=== PATIENT | male | born 1960 | race Caucasian/White ===

== ENCOUNTER 2017-05-26 01:15 | Inpatient (IN) | payer MEDICARE, OTHER ==
[2017-05-26] MEDS: morphine 4 MG/ML VIAL IV ×2 (03:05→05:10)
[2017-05-26] MEDS: ONDANSETRON 4 MG INJ IV ×2 (03:05→05:16)
[2017-05-26 03:06] LABS: ADD MAN DIFF? NO
[2017-05-26 03:07] LABS: WHITE BLOOD COUNT 5.3 10^3/ul (4.8-10.8)
[2017-05-26 03:07] LABS: BASOPHILS % 0.6 % (0.0-2.0); HEMATOCRIT 37.8 % (42.0-52.0); HEMOGLOBIN 12.5 g/dl (14.0-18.0); LYMPHOCYTES # 0.8 10^3/ul (0.8-2.9); LYMPHOCYTES % 14.9 % (15.0-51.0); MEAN CORPUSCULAR HEMOGLOBIN 31.3 pg (29.0-33.0); MEAN CORPUSCULAR HGB CONC 33.1 g/dl (32.0-37.0); MEAN CORPUSCULAR VOLUME 94.7 fl (82.0-101.0); MEAN PLATELET VOLUME 9.5 fl (7.4-10.4); MONOCYTE # 0.5 10^3/ul (0.3-0.9); NEUTROPHIL # 3.9 10^3/ul (1.6-7.5); NEUTROPHILS % 74.3 % (39.0-77.0); PLATELET COUNT 104 10^3/UL (140-415); POSITIVE DIFF @See below; RED BLOOD COUNT 3.99 10^6/ul (4.70-6.10); RED CELL DISTRIBUTION WIDTH 17.1 % (11.5-14.5)
[2017-05-26 03:28] LABS: ALANINE AMINOTRANSFERASE 28 IU/L (13-69); ALBUMIN 4.4 g/dl (3.3-4.9); ALBUMIN/GLOBULIN RATIO 1.37; ALKALINE PHOSPHATASE 171 IU/L (42-121); ANION GAP 18 (8-16); ASPARTATE AMINO TRANSFERASE 46 IU/L (15-46); BILIRUBIN,INDIRECT 0.6 mg/dl (0-1.1); BILIRUBIN,TOTAL 0.6 mg/dl (0.2-1.3); BLOOD UREA NITROGEN 20 mg/dl (7-20); CALCIUM 9.4 mg/dl (8.4-10.2); CARBON DIOXIDE 27 mmol/L (21-31); CHLORIDE 105 mmol/L (97-110); CREATINE KINASE 361 IU/L (23-200); CREATININE 1.11 mg/dl (0.61-1.24); GLUCOSE 72 mg/dl (70-220); POTASSIUM 3.9 mmol/L (3.5-5.1); SODIUM 146 mmol/L (135-144); TOTAL PROTEIN 7.6 g/dl (6.1-8.1)
[2017-05-26] MEDS ORDERED: ACETAMINOPHEN 325 MG TAB PO (03:30)
[2017-05-26] MEDS ORDERED: NACL 0.9% 3 ML SYG IV (03:30)
[2017-05-26] MEDS ORDERED: ONDANSETRON 4 MG INJ IV (03:30)
[2017-05-26 03:39] LABS: B-TYPE NATRIURETIC PEPTIDE 1160 PG/ML (0-125); CK INDEX 1.6; TROPONIN-I 0.016 ng/ml (0.00-0.12); TROPONIN-I 0.017 ng/ml (0.00-0.12)
[2017-05-26] MEDS: NITROGLYCERIN (SL) 0.4 MG TAB SL ×2 (03:39→04:17)
[2017-05-26] MEDS: SOD CHLORIDE 0.9% 1,000 ML IV (03:39)
[2017-05-26 03:46] LABS: CK-MB 5.79 ng/ml (0.0-2.4)
[2017-05-26 03:52] LABS: CHOL/HDL RATIO 2.4 RATIO; CHOLESTEROL 146 mg/dl (100-200); HDL CHOLESTEROL 59 mg/dl (28-71); LDL CHOLESTEROL,CALCULATED 75 mg/dl; TRIGLYCERIDES 59 mg/dl (0-149)
[2017-05-26 03:52] LABS: MAGNESIUM 1.5 mg/dl (1.7-2.5)
[2017-05-26 04:02] LABS: HEMOGLOBIN A1C 4.8 % (0-5.9)
[2017-05-26] MEDS: morphine 2 MG INJ IV ×4 (05:17→22:53)
[2017-05-26] MEDS: MAGNESIUM SULFATE 3 GM in DEXTROSE 5% 100 ML IVPB (12:49)
[2017-05-26 13:14] LABS: FREE T4 (FREE THYROXINE) 1.24 ng/dl (0.64-1.79)
[2017-05-26 15:48] LABS: CREATINE KINASE 213 IU/L (23-200)
[2017-05-26 15:57] LABS: CK INDEX 1.8
[2017-05-26 15:58] LABS: CK-MB 3.89 ng/ml (0.0-2.4)
[2017-05-26 16:19] LABS: TROPONIN-I 0.017 ng/ml (0.00-0.12)
[2017-05-26] MEDS: FUROSEMIDE 40 MG INJ IV (18:21)
[2017-05-27] MEDS: HYDROmorphONE 2 MG TAB PO (01:45)
[2017-05-27] MEDS ORDERED: HYDROmorphONE 2 MG/ML SYG IV (02:51)
[2017-05-27] MEDS: HYDROmorphONE 0.5 MG/0.5 ML SYG IV ×5 (02:54→23:15)
[2017-05-27] MEDS: FUROSEMIDE 40 MG INJ IV ×2 (05:43→18:23)
[2017-05-27 08:16] LABS: ADD MAN DIFF? NO
[2017-05-27] MEDS: ASPIRIN 81 MG TAB PO (08:46)
[2017-05-27] MEDS: ENOXAPARIN 40 MG/0.4 ML SYG SC (08:47)
[2017-05-27 08:51] LABS: ANION GAP 10 (8-16); BLOOD UREA NITROGEN 20 mg/dl (7-20); CALCIUM 8.7 mg/dl (8.4-10.2); CARBON DIOXIDE 33 mmol/L (21-31); CHLORIDE 105 mmol/L (97-110); CREATININE 0.89 mg/dl (0.61-1.24); GLUCOSE 99 mg/dl (70-220); MAGNESIUM 1.9 mg/dl (1.7-2.5); SODIUM 144 mmol/L (135-144)
[2017-05-27 09:36] LABS: WHITE BLOOD COUNT 2.8 10^3/ul (4.8-10.8)
[2017-05-27 09:36] LABS: ABNORMAL IP MESSAGE 1; BASOPHILS % 0.4 % (0.0-2.0); HEMATOCRIT 36.7 % (42.0-52.0); HEMOGLOBIN 12.1 g/dl (14.0-18.0); LYMPHOCYTES # 0.6 10^3/ul (0.8-2.9); LYMPHOCYTES % 20.6 % (15.0-51.0); MEAN CORPUSCULAR HEMOGLOBIN 32.1 pg (29.0-33.0); MEAN CORPUSCULAR VOLUME 97.3 fl (82.0-101.0); MEAN PLATELET VOLUME 9.5 fl (7.4-10.4); MONOCYTE # 0.4 10^3/ul (0.3-0.9); MONOCYTES % 12.8 % (0.0-11.0); NEUTROPHIL # 1.9 10^3/ul (1.6-7.5); NEUTROPHILS % 65.8 % (39.0-77.0); POSITIVE DIFF @See below; RED BLOOD COUNT 3.77 10^6/ul (4.70-6.10); RED CELL DISTRIBUTION WIDTH 17.3 % (11.5-14.5)
[2017-05-27 09:38] LABS: PLATELET COUNT 92 10^3/UL (140-415)
[2017-05-27] MEDS: MAGNESIUM SULFATE 1 GM/D5W 100 ML IVPB (13:49)
[2017-05-28] MEDS: HYDROmorphONE 0.5 MG/0.5 ML SYG IV ×7 (02:52→23:55)
[2017-05-28] MEDS: FUROSEMIDE 40 MG INJ IV ×2 (06:15→17:23)
[2017-05-28 06:36] LABS: ANION GAP 13 (8-16)
[2017-05-28 06:56] LABS: BLOOD UREA NITROGEN 22 mg/dl (7-20); CALCIUM 9.3 mg/dl (8.4-10.2); CARBON DIOXIDE 34 mmol/L (21-31); CHLORIDE 102 mmol/L (97-110); CREATININE 0.92 mg/dl (0.61-1.24); GLUCOSE 69 mg/dl (70-220); MAGNESIUM 1.9 mg/dl (1.7-2.5); POTASSIUM 4.2 mmol/L (3.5-5.1); SODIUM 145 mmol/L (135-144)
[2017-05-28] MEDS: ENOXAPARIN 40 MG/0.4 ML SYG SC (09:33)
[2017-05-28] MEDS: ASPIRIN 81 MG TAB PO (09:33)
[2017-05-29] MEDS: HYDROmorphONE 0.5 MG/0.5 ML SYG IV ×6 (03:18→20:22)
[2017-05-29] MEDS: FUROSEMIDE 40 MG INJ IV ×2 (06:10→17:12)
[2017-05-29] MEDS: ASPIRIN 81 MG TAB PO (10:25)
[2017-05-29] MEDS: ENOXAPARIN 40 MG/0.4 ML SYG SC (10:29)
[2017-05-30] MEDS: HYDROmorphONE 0.5 MG/0.5 ML SYG IV ×6 (00:45→22:49)
[2017-05-30] MEDS: FUROSEMIDE 40 MG INJ IV ×2 (06:14→18:36)
[2017-05-30] MEDS: ASPIRIN 81 MG TAB PO (09:48)
[2017-05-30] MEDS: ENOXAPARIN 40 MG/0.4 ML SYG SC (09:56)
[2017-05-31] MEDS: HYDROmorphONE 0.5 MG/0.5 ML SYG IV ×7 (02:13→23:13)
[2017-05-31] MEDS: FUROSEMIDE 40 MG INJ IV (05:46)
[2017-05-31] MEDS: ASPIRIN 81 MG TAB PO (09:06)
[2017-05-31] MEDS: ENOXAPARIN 40 MG/0.4 ML SYG SC (09:07)
[2017-05-31 09:08] LABS: ADD MAN DIFF? NO
[2017-05-31 09:20] LABS: BASOPHILS % 0.5 % (0.0-2.0); HEMATOCRIT 39.5 % (42.0-52.0); HEMOGLOBIN 13.4 g/dl (14.0-18.0); LYMPHOCYTES # 0.7 10^3/ul (0.8-2.9); MEAN CORPUSCULAR HEMOGLOBIN 32.1 pg (29.0-33.0); MEAN CORPUSCULAR HGB CONC 33.9 g/dl (32.0-37.0); MEAN CORPUSCULAR VOLUME 94.5 fl (82.0-101.0); MEAN PLATELET VOLUME 9.3 fl (7.4-10.4); MONOCYTE # 0.5 10^3/ul (0.3-0.9); MONOCYTES % 11.9 % (0.0-11.0); NEUTROPHIL # 2.6 10^3/ul (1.6-7.5); NEUTROPHILS % 68.3 % (39.0-77.0); PLATELET COUNT 111 10^3/UL (140-415); RED BLOOD COUNT 4.18 10^6/ul (4.70-6.10); RED CELL DISTRIBUTION WIDTH 16.1 % (11.5-14.5)
[2017-05-31 09:20] LABS: WHITE BLOOD COUNT 3.8 10^3/ul (4.8-10.8)
[2017-05-31 09:51] LABS: ANION GAP 15 (8-16); BLOOD UREA NITROGEN 32 mg/dl (7-20); CALCIUM 9.4 mg/dl (8.4-10.2); CARBON DIOXIDE 31 mmol/L (21-31); CHLORIDE 101 mmol/L (97-110); CREATININE 0.91 mg/dl (0.61-1.24); GLUCOSE 96 mg/dl (70-220); SODIUM 143 mmol/L (135-144)
[2017-05-31] MEDS: FUROSEMIDE 40 MG TAB PO (17:59)
[2017-06-01] MEDS: FUROSEMIDE 40 MG TAB PO ×2 (05:31→17:37)
[2017-06-01] MEDS: HYDROmorphONE 0.5 MG/0.5 ML SYG IV ×4 (05:33→17:37)
[2017-06-01] MEDS: ASPIRIN 81 MG TAB PO (08:40)
[2017-06-01] MEDS: ENOXAPARIN 40 MG/0.4 ML SYG SC (08:43)
== END 2017-06-01 19:45 | disposition home or self-care (01) | DRG 313 ==
LOC: MS4 05-31 06:43 → E/R 01:15 → MS4 05-31 10:54
DX: R07.89 Other chest pain (principal); I20.8 Other forms of angina pectoris; I36.1 Nonrheumatic tricuspid (valve) insufficiency; I25.10 Atherosclerotic heart disease of native coronary artery without angina pectoris; Z95.1 Presence of aortocoronary bypass graft; I25.5 Ischemic cardiomyopathy; E78.5 Hyperlipidemia, unspecified; Z95.810 Presence of automatic (implantable) cardiac defibrillator; M54.5 Low back pain; E03.9 Hypothyroidism, unspecified; M48.00 Spinal stenosis, site unspecified
CPT/HCPCS: 71045; 80048; 80053; 80061; 82550; 82553; 83036; 83735; 83880; 84439; 84443; 84484; 85025; 93005; 93306; G0378

== ENCOUNTER 2017-10-29 23:44 | Inpatient (IN) | payer MEDICARE, OTHER ==
[2017-10-30 00:45] LABS: ADD MAN DIFF? NO
[2017-10-30 01:09] LABS: WHITE BLOOD COUNT 5.2 10^3/ul (4.8-10.8)
[2017-10-30 01:09] LABS: BASOPHILS % 0.6 % (0.0-2.0); HEMATOCRIT 37.5 % (42.0-52.0); HEMOGLOBIN 12.2 g/dl (14.0-18.0); LYMPHOCYTES # 0.7 10^3/ul (0.8-2.9); LYMPHOCYTES % 13.6 % (15.0-51.0); MEAN CORPUSCULAR HEMOGLOBIN 31.7 pg (29.0-33.0); MEAN CORPUSCULAR HGB CONC 32.5 g/dl (32.0-37.0); MEAN CORPUSCULAR VOLUME 97.4 fl (82.0-101.0); MEAN PLATELET VOLUME 9.5 fl (7.4-10.4); MONOCYTE # 0.5 10^3/ul (0.3-0.9); MONOCYTES % 8.7 % (0.0-11.0); NEUTROPHIL # 3.9 10^3/ul (1.6-7.5); NEUTROPHILS % 76.5 % (39.0-77.0); PLATELET COUNT 162 10^3/UL (140-415); RED BLOOD COUNT 3.85 10^6/ul (4.70-6.10); RED CELL DISTRIBUTION WIDTH 15.1 % (11.5-14.5)
[2017-10-30] MEDS: ASPIRIN 325 MG TAB PO ×2 (01:10→09:45)
[2017-10-30 01:24] LABS: ANION GAP 16 (8-16); BLOOD UREA NITROGEN 21 mg/dl (7-20); CALCIUM 9.2 mg/dl (8.4-10.2); CARBON DIOXIDE 24 mmol/L (21-31); CHLORIDE 103 mmol/L (97-110); CREATININE 1.13 mg/dl (0.61-1.24); GLUCOSE 90 mg/dl (70-220); POTASSIUM 4.5 mmol/L (3.5-5.1); SODIUM 138 mmol/L (135-144)
[2017-10-30 01:36] LABS: B-TYPE NATRIURETIC PEPTIDE 976 PG/ML (0-125); TROPONIN-I < 0.012 ng/ml (0.000-0.120)
[2017-10-30] MEDS: LIDOCAINE/MYLANTA 40 ML BTL PO (02:35)
[2017-10-30] MEDS: NITROGLYCERIN (SL) 0.4 MG TAB SL (02:35)
[2017-10-30] MEDS: morphine 4 MG/ML VIAL IV (04:56)
[2017-10-30 06:38] LABS: CREATINE KINASE 203 IU/L (23-200)
[2017-10-30 06:44] LABS: CK-MB 3.99 ng/ml (0.0-2.4); TROPONIN-I 0.014 ng/ml (0.000-0.120)
[2017-10-30] MEDS ORDERED: NITROGLYCERIN (SL) 0.4 MG TAB SL (07:00)
[2017-10-30] MEDS: FUROSEMIDE 40 MG TAB PO ×2 (07:41→17:29)
[2017-10-30] MEDS: HYDROmorphONE 1 MG/ML SYG IV ×5 (07:42→23:51)
[2017-10-30 08:54] LABS: ADD MAN DIFF? NO
[2017-10-30 08:56] LABS: BASOPHILS % 0.5 % (0.0-2.0); HEMATOCRIT 36.3 % (42.0-52.0); HEMOGLOBIN 11.9 g/dl (14.0-18.0); LYMPHOCYTES # 0.7 10^3/ul (0.8-2.9); LYMPHOCYTES % 17.7 % (15.0-51.0); MEAN CORPUSCULAR HEMOGLOBIN 31.8 pg (29.0-33.0); MEAN CORPUSCULAR HGB CONC 32.8 g/dl (32.0-37.0); MEAN CORPUSCULAR VOLUME 97.1 fl (82.0-101.0); MEAN PLATELET VOLUME 9.2 fl (7.4-10.4); MONOCYTE # 0.5 10^3/ul (0.3-0.9); MONOCYTES % 11.3 % (0.0-11.0); NEUTROPHIL # 2.9 10^3/ul (1.6-7.5); PLATELET COUNT 128 10^3/UL (140-415); RED BLOOD COUNT 3.74 10^6/ul (4.70-6.10); RED CELL DISTRIBUTION WIDTH 14.8 % (11.5-14.5)
[2017-10-30 08:56] LABS: WHITE BLOOD COUNT 4.1 10^3/ul (4.8-10.8)
[2017-10-30] MEDS ORDERED: NITROGLYCERIN 0.6 MG/HR PATCH TRANSDERM (09:00)
[2017-10-30 09:21] LABS: CREATINE KINASE 170 IU/L (23-200)
[2017-10-30 09:24] LABS: ANION GAP 13 (8-16); BLOOD UREA NITROGEN 21 mg/dl (7-20); CARBON DIOXIDE 25 mmol/L (21-31); CHLORIDE 106 mmol/L (97-110); CHOL/HDL RATIO 2.4 RATIO; CHOLESTEROL 132 mg/dl (100-200); CREATININE 0.93 mg/dl (0.61-1.24); GLUCOSE 91 mg/dl (70-220); HDL CHOLESTEROL 55 mg/dl (28-71); LDL CHOLESTEROL,CALCULATED 66 mg/dl; POTASSIUM 4.9 mmol/L (3.5-5.1); SODIUM 139 mmol/L (135-144); TRIGLYCERIDES 56 mg/dl (0-149)
[2017-10-30 09:34] LABS: CK INDEX 1.9; CK-MB 3.24 ng/ml (0.0-2.4); TROPONIN-I < 0.012 ng/ml (0.000-0.120)
[2017-10-30] MEDS: POTASSIUM CHLORIDE (SR) 20 MEQ TAB PO (09:46)
[2017-10-30] MEDS: RANOLAZINE (SR) 500 MG TAB PO ×2 (09:46→20:06)
[2017-10-30] MEDS: DIPHENHYDRAMINE 50 MG CAP PO (09:46)
[2017-10-30] MEDS: AMLODIPINE 10 MG TAB PO ×3 (09:47→23:51)
[2017-10-30] MEDS: ISOSORBIDE DINITRATE 20 MG TAB PO ×4 (09:47→21:00)
[2017-10-30] MEDS: NITROGLYCERIN 0.3 MG/HR PATCH TRANSDERM (09:47)
[2017-10-30] MEDS: ATORVASTATIN 20 MG TAB PO (20:06)
[2017-10-31] MEDS: HYDROmorphONE 1 MG/ML SYG IV ×5 (04:19→20:54)
[2017-10-31] MEDS: FUROSEMIDE 40 MG TAB PO ×2 (06:47→17:58)
[2017-10-31] MEDS: RANOLAZINE (SR) 500 MG TAB PO ×2 (08:41→20:37)
[2017-10-31] MEDS: POTASSIUM CHLORIDE (SR) 20 MEQ TAB PO (08:41)
[2017-10-31] MEDS: ASPIRIN 325 MG TAB PO (08:41)
[2017-10-31] MEDS: NITROGLYCERIN 0.3 MG/HR PATCH TRANSDERM (08:42)
[2017-10-31] MEDS: AMLODIPINE 10 MG TAB PO ×2 (08:42→20:38)
[2017-10-31] MEDS: ISOSORBIDE DINITRATE 20 MG TAB PO ×3 (09:03→20:38)
[2017-10-31] MEDS: ATORVASTATIN 20 MG TAB PO (20:38)
[2017-11-01] MEDS: HYDROmorphONE 1 MG/ML SYG IV ×6 (00:56→21:50)
[2017-11-01] MEDS: FUROSEMIDE 40 MG TAB PO ×2 (05:19→17:44)
[2017-11-01 05:43] LABS: ADD MAN DIFF? NO
[2017-11-01 05:51] LABS: BASOPHILS % 0.5 % (0.0-2.0); HEMATOCRIT 34.4 % (42.0-52.0); HEMOGLOBIN 11.4 g/dl (14.0-18.0); LYMPHOCYTES # 0.7 10^3/ul (0.8-2.9); LYMPHOCYTES % 16.8 % (15.0-51.0); MEAN CORPUSCULAR HGB CONC 33.1 g/dl (32.0-37.0); MEAN CORPUSCULAR VOLUME 96.6 fl (82.0-101.0); MONOCYTE # 0.5 10^3/ul (0.3-0.9); MONOCYTES % 11.8 % (0.0-11.0); NEUTROPHIL # 2.9 10^3/ul (1.6-7.5); NEUTROPHILS % 70.2 % (39.0-77.0); PLATELET COUNT 136 10^3/UL (140-415); RED BLOOD COUNT 3.56 10^6/ul (4.70-6.10); RED CELL DISTRIBUTION WIDTH 14.4 % (11.5-14.5)
[2017-11-01 05:51] LABS: WHITE BLOOD COUNT 4.2 10^3/ul (4.8-10.8)
[2017-11-01 06:05] LABS: ANION GAP 13 (8-16); BLOOD UREA NITROGEN 26 mg/dl (7-20); CARBON DIOXIDE 30 mmol/L (21-31); CHLORIDE 101 mmol/L (97-110); CREATININE 1.17 mg/dl (0.61-1.24); GLUCOSE 119 mg/dl (70-220); SODIUM 140 mmol/L (135-144)
[2017-11-01] MEDS: RANOLAZINE (SR) 500 MG TAB PO ×2 (09:30→20:47)
[2017-11-01] MEDS: ISOSORBIDE DINITRATE 20 MG TAB PO ×2 (09:30→13:18)
[2017-11-01] MEDS: AMLODIPINE 10 MG TAB PO (09:31)
[2017-11-01] MEDS: POTASSIUM CHLORIDE (SR) 20 MEQ TAB PO (09:31)
[2017-11-01] MEDS: ASPIRIN 325 MG TAB PO (09:31)
[2017-11-01] MEDS: NITROGLYCERIN 0.3 MG/HR PATCH TRANSDERM (09:32)
[2017-11-01] MEDS: FUROSEMIDE 40 MG INJ IV (14:54)
[2017-11-01] MEDS: METOPROLOL 25 MG TAB PO (20:46)
[2017-11-01] MEDS: ATORVASTATIN 20 MG TAB PO (20:47)
[2017-11-02] MEDS: HYDROmorphONE 1 MG/ML SYG IV ×6 (01:56→22:13)
[2017-11-02] MEDS: FUROSEMIDE 40 MG TAB PO ×2 (06:13→18:05)
[2017-11-02] MEDS: METOPROLOL 25 MG TAB PO ×2 (09:00→20:29)
[2017-11-02] MEDS: DIPHENHYDRAMINE 50 MG CAP PO (09:09)
[2017-11-02] MEDS: ASPIRIN 81 MG TAB PO (09:09)
[2017-11-02] MEDS: RANOLAZINE (SR) 500 MG TAB PO ×2 (09:09→20:45)
[2017-11-02] MEDS: POTASSIUM CHLORIDE (SR) 20 MEQ TAB PO (09:09)
[2017-11-02] MEDS: ISOSORBIDE MONONITRATE(SR)60 MG TAB PO (09:13)
[2017-11-02] MEDS: ATORVASTATIN 20 MG TAB PO (20:45)
[2017-11-03] MEDS: HYDROmorphONE 1 MG/ML SYG IV ×4 (02:16→14:18)
[2017-11-03] MEDS: FUROSEMIDE 40 MG TAB PO (06:25)
[2017-11-03] MEDS: RANOLAZINE (SR) 500 MG TAB PO (09:13)
[2017-11-03] MEDS: ISOSORBIDE MONONITRATE(SR)60 MG TAB PO (09:13)
[2017-11-03] MEDS: DIPHENHYDRAMINE 50 MG CAP PO (09:13)
[2017-11-03] MEDS: POTASSIUM CHLORIDE (SR) 20 MEQ TAB PO (09:13)
[2017-11-03] MEDS: ASPIRIN 81 MG TAB PO (09:13)
[2017-11-03] MEDS: METOPROLOL 25 MG TAB PO (09:14)
== END 2017-11-03 17:46 | disposition home or self-care (01) | DRG 307 ==
LOC: E/R 23:44 → 6WM 10-30 03:53
DX: I36.1 Nonrheumatic tricuspid (valve) insufficiency (principal); R07.9 Chest pain, unspecified; I25.5 Ischemic cardiomyopathy; Z95.1 Presence of aortocoronary bypass graft; M54.5 Low back pain; Z95.810 Presence of automatic (implantable) cardiac defibrillator; R60.9 Edema, unspecified
CPT/HCPCS: 36415; 71045; 80048; 80061; 82550; 82553; 83880; 84484; 85025; 93005; 93306; 99285-25